=== PATIENT | female | born 1985 | race Caucasian/White ===

== ENCOUNTER → 2016-05-21 | Outpatient (CLI) | payer OTHER | END | disposition home or self-care (01) | LOC: MW.LAB 07:32 | PROVIDERS: ATTEND Obstetrics & Gynecology | DX: L29.9 Pruritus, unspecified (principal) | CPT/HCPCS: 84156 ==

== ENCOUNTER 2016-06-21 00:08 | Inpatient (IN) | payer OTHER ==
[2016-06-21] MEDS ORDERED: Sodium Chloride 0.9% 2.5 ML Syringe FLUSH PRN (00:36)
[2016-06-21] MEDS ORDERED: Terbutaline 1 MG/ML SDV SUBCUT PRN (00:36)
[2016-06-21] MEDS ORDERED: Lidocaine 1% 50 ML MDV INJECT PRN (00:36)
[2016-06-21] MEDS ORDERED: Butorphanol 1 MG/ML SDV IVPUSH PRN (00:36)
[2016-06-21] MEDS ORDERED: Carboprost Tromethamine 250 MCG/1 ML Amp IM PRN (00:36)
[2016-06-21] MEDS ORDERED: Misoprostol 200 MCG Tab PO PRN (00:36)
[2016-06-21] MEDS ORDERED: Misoprostol 25 MCG (1/4 of 100 MCG) Tab VAG PRN (00:36)
[2016-06-21] MEDS ORDERED: Nalbuphine 10 MG/1 ML Vial IVPUSH PRN (00:36)
[2016-06-21] MEDS ORDERED: Water For Irrigation,Sterile 1,000 ML Container IRR PRN (00:36)
[2016-06-21] MEDS ORDERED: Methylergonovine 0.2 MG/1 ML Amp IM PRN (00:36)
[2016-06-21] MEDS ORDERED: Sodium Chloride 0.9% 10 ML Syringe FLUSH PRN (00:36)
[2016-06-21] MEDS ORDERED: Oxytocin/Lactated Ringers 30 UNIT/500 ML BAG IV SCH ×2 (00:45)
[2016-06-21] MEDS ORDERED: Misoprostol 25 MCG (1/4 of 100 MCG) Tab VAG SCH (00:45)
[2016-06-21] MEDS: Lactated Ringers 1,000 ML IV SCH ×5 (00:53→17:40)
[2016-06-21] MEDS ORDERED: fentaNYL 100 MCG/2 ML SDV ONE (09:36)
[2016-06-21] MEDS ORDERED: Ropivacaine HCl/PF 100 ML ONE ×2 (09:37→17:38)
--- NOTE | 2016-06-21 10:20 | PCM.PREANE ---
Preanesthetic Assessment - Anesthesia/Transfusion/Family Hx Anesthesia History: Prior Anesthesia Without Reaction Family History of Anesthesia Reaction: No Transfusion History: No Prior Transfusion(s) Intubation History: Unknown - Review of Systems General: No Symptoms Pulmonary: No Symptoms Cardiovascular: No Symptoms Gastrointestinal: No symptoms, Other (states about 4 weeks ago they discovered she has cholestasis, but reports no symptoms) Neurological: No Symptoms - Physical Assessment NPO Status Date: 06/21/16 NPO Status Time: 10:17 (sips/chips) Blood Pressure: 126/79 Height: 5 ft 7 in Weight: 196 lb 9.6 oz ASA Class: 2 Mental Status: Alert & Oriented x3 Airway Class: Mallampati = 2 Dentition: Reports: Normal Dentition Thyro-Mental Finger Breadths: 3 Mouth Opening Finger Breadths: 3 ROM/Head Extension: Full Lungs: Clear to auscultation, Normal respiratory effort Cardiovascular: Regular Rate, Regular Rhythm - Lab Values: Laboratory Last Values WBC 12.90 K/uL (4.0-11.0) H 06/21/16 00:46 RBC 3.91 M/uL (4.30-5.90) L 06/21/16 00:46 Hgb 10.3 g/dL (12.0-16.0) L 06/21/16 00:46 Hct 31.8 % (36.0-46.0) L 06/21/16 00:46 MCV 81.3 fL (80.0-98.0) 06/21/16 00:46 MCH 26.3 pg (27.0-32.0) L 06/21/16 00:46 MCHC 32.4 g/dL (31.0-37.0) 06/21/16 00:46 RDW Std Deviation 38.6 fl (28.0-62.0) 06/21/16 00:46 RDW Coeff of Ross 13 % (11.0-15.0) 06/21/16 00:46 Plt Count 186 K/uL (150-400) 06/21/16 00:46 MPV 10.50 fL (7.40-12.00) 06/21/16 00:46 Nucleated RBC % 0.0 /100WBC 06/21/16 00:46 Nucleated RBCs # 0 K/uL 06/21/16 00:46 Blood Type A POSITIVE 06/21/16 00:46 Antibody Screen NEGATIVE 06/21/16 00:46 - Allergies Allergies/Adverse Reactions: Allergies Allergy/AdvReac Type Severity Reaction Status Date / Time Penicillins Allergy Other Verified 06/21/16 00:35 - Blood Blood Available: No Product(s) Available: None - Anesthesia Plan Pre-Op Medication Ordered: None - Acknowledgements Anesthesia Type Planned: Epidural Pt an Appropriate Candidate for the Planned Anesthesia: Yes Alternatives and Risks of Anesthesia Discussed w Pt/Guardian: Yes Pt/Guardian Understands and Agrees with Anesthesia Plan: Yes PreAnesthesia Questionnaire Respiratory History: Reports: Asthma (states has not had to use inhaler in a long time) Gastrointestinal History: Reports: Other (see below) (cholestasis - discovered 4 weeks ago - induction d/t this) HOME HEALTH OCCUPATIONAL THERAPIST History: Reports: Spontaneous , Other (see below) Other OB/BYN History: D&C - Past Surgical History HEENT Surgical History: Reports: Tonsillectomy Female Surgical History: Reports: D&C - SUBSTANCE USE Tobacco Use Within Last Twelve Months: No - CURRENT (IN HOUSE) MEDS Current Meds: Current Medications Butorphanol Tartrate (Stadol) 1 mg IVPUSH ASDIRECTED PRN PRN Reason: Pain Carboprost Tromethamine (Hemabate Ds) 250 mcg IM ASDIRECTED PRN PRN Reason: Post Hemorrhage Lactated Ringer's (Ringers, Lactated) 1,000 mls @ 150 mls/hr IV ASDIRECTED TAINA Last Admin: 06/21/16 10:12 Dose: 150 mls/hr Oxytocin/Lactated Ringer's (Pitocin In Lr 30 Units/500 Ml) 30 unit in 500 mls @ 2 mls/hr IV TITRATE TAINA; 2 MUNITS/MIN PRN Reason: Protocol Last Titration: 06/21/16 07:34 Dose: 14 munits/min, 14 mls/hr Lidocaine HCl (Xylocaine 1%) 50 ml INJECT .ONCE PRN PRN Reason: Laceration repair Methylergonovine Maleate (Methergine) 0.2 mg IM ASDIRECTED PRN PRN Reason: Post Hemorrhage Misoprostol (Cytotec) 200 mcg PO .ONCE PRN PRN Reason: Post Hemorrhage Misoprostol (Cytotec) 25 mcg VAG .ONCE TIANA Misoprostol (Cytotec) 25 mcg VAG Q4H PRN PRN Reason: Cervical Ripening Stop: 06/22/16 04:37 Last Admin: 06/21/16 01:07 Dose: 25 mcg Sodium Chloride (Saline Flush) 10 ml FLUSH ASDIRECTED PRN PRN Reason: Keep Vein Open Sodium Chloride (Saline Flush) 2.5 ml FLUSH ASDIRECTED PRN PRN Reason: Keep Vein Open Sterile Water (Sterile Water For Irrigation) 1,000 ml IRR ASDIRECTED PRN PRN Reason: delivery Terbutaline Sulfate (Brethine) 0.25 mg SUBCUT ASDIRECTED PRN PRN Reason: Tacysystole Discontinued Medications Fentanyl (Sublimaze) Confirm Administered Dose 100 mcg .ROUTE .STK-MED ONE Stop: 06/21/16 09:37 Oxytocin/Lactated Ringer's (Pitocin In Lr 30 Units/500 Ml) 30 unit in 500 mls @ 999 mls/hr IV ASDIRECTED TAINA PRN Reason: 999 MUNITS/MIN Stop: 06/21/16 01:16 Ropivacaine (Naropin 0.2%) Confirm Administered Dose 100 mls @ as directed .ROUTE .STK-MED ONE Stop: 06/21/16 09:38 Nalbuphine HCl (Nubain) 10 mg IVPUSH Q1H PRN PRN Reason: Pain (severe 7-10) Stop: 06/21/16 02:37
[2016-06-21] MEDS ORDERED: Acetaminophen 500 MG Tab PO ONE (16:46)
[2016-06-21] MEDS ORDERED: Ondansetron 4 MG/2 ML SDV IVPUSH ONE (17:05)
[2016-06-21] MEDS ORDERED: Measles, Mumps & Rubella Vaccine 0.5 ML SDV SUBCUT ONE (18:51)
[2016-06-21] MEDS ORDERED: Ibuprofen 400 MG Tab PO PRN (18:51)
[2016-06-21] MEDS ORDERED: Docusate Sodium 100 MG Cap PO PRN (18:51)
[2016-06-21] MEDS ORDERED: Benzocaine/Menthol 20%-0.5% Spray 78 GM Cannister TOP PRN (18:51)
[2016-06-21] MEDS ORDERED: Acetaminophen 500 MG Tab PO PRN ×2 (18:51)
[2016-06-21] MEDS ORDERED: Witch Hazel Medicated Pads 40/Jar TOP PRN (18:51)
[2016-06-21] MEDS ORDERED: Lanolin 100% Cream 7 GM Tube TOP PRN (18:51)
[2016-06-21] MEDS ORDERED: Bisacodyl 10 MG Supp RECTAL PRN (18:51)
[2016-06-21] MEDS: Ibuprofen 800 MG Tab PO PRN (21:24)
[2016-06-21] MEDS: oxyCODONE 5 MG Tab PO PRN (22:35)
--- NOTE | 2016-06-21 23:12 | OR ---
SURGEON: Erica Cox MD DATE OF PROCEDURE: 06/21/2016 PREOPERATIVE DIAGNOSES: 1. Term at 38 weeks and 2 days. 2. Cholestasis of . POSTOPERATIVE DIAGNOSES: 1. Term at 38 weeks and 2 days. 2. Cholestasis of . 3. Delivered. PROCEDURES: 1. Spontaneous vaginal delivery. 2. Repair of second-degree perineal laceration. ANESTHESIA: Epidural. ESTIMATED BLOOD LOSS: Less than 200 mL. COMPLICATIONS: None. DISPOSITION: Mother and baby stable to Labor and Delivery Room, [facility]. FINDINGS: Male , weight 3060 g, score 8 and 9 at 1 and 5 minute respectively. Grossly normal placenta with three-vessel cord. Midline second-degree perineal laceration. BRIEF HISTORY: The patient is a G3, P0 who was admitted at 38 weeks and 1 day for induction of labor secondary to cholestasis of . surveillance remained reassuring during the antepartum period. GBS negative. On admission, she received a dose of Cytotec 25 mcg vaginally for cervical ripening and thereafter oxytocin infusion was commenced. Artificial rupture of membranes was performed at about 0830am this morning, clear amniotic fluid. At that time, she was 3 cm dilated, 80% effaced, station -2. She did receive epidural for pain management, progressed to full dilatation and commenced active pushing. heart tracing remained Category 1. She pushed quite well bringing the baby's head down to a +4 station and was set up for delivery in modified dorsal lithotomy position. DESCRIPTION OF PROCEDURE: She had a spontaneous vaginal delivery of a live male in direct occipital anterior position, loose nuchal cord which was easily reduced, clear amniotic fluid at delivery. Anterior and posterior shoulders and the rest of the baby were delivered without difficulty. The baby was vigorous and cried spontaneously at . The baby was delivered onto the maternal abdomen. The cord was double clamped, after it had ceased pulsating and was cut. With delivery of the , oxytocin infusion was converted to titration for active management of third stage of labor. Cord blood and gas samples were obtained. The placenta was delivered via controlled cord traction, appeared to be complete and intact. Examination of the perineum revealed a midline second-degree laceration. The laceration was repaired with routine technique in 3 layers, subcuticular stitches were used to reapproximate the skin. The repair was hemostatic. Uterine massage was performed. The uterus was found to be well contracted below the umbilicus.The patient tolerated the procedure well. Sponge, instrument, and needle counts were correct at the end of the delivery. RUDY / JUS /[id number] MTDD
[2016-06-22] MEDS: oxyCODONE 5 MG Tab PO PRN ×2 (03:28→11:36)
[2016-06-22] MEDS: Ibuprofen 800 MG Tab PO PRN ×2 (03:29→11:37)
--- NOTE | 2016-06-22 07:48 | PCM48HPAN ---
Post Anesthesia Note - EVALUATION WITHIN 48HRS OF ANESTHETIC Vital Signs in Normal Range: Yes Patient Participated in Evaluation: Yes Respiratory Function Stable: Yes Airway Patent: Yes Cardiovascular Function Stable: Yes Hydration Status Stable: Yes Pain Control Satisfactory: Yes Nausea and Vomiting Control Satisfactory: Yes Mental Status Recovered: Yes
--- NOTE | 2016-06-22 07:56 | PCM.PNPP ---
- General Info Date of Service: 06/22/16 Functional Status: Reports: pain controlled, tolerating diet, ambulating, urinating - Review of Systems General: Denies: Fever, Weakness, Fatigue, Malaise, Chills Pulmonary: Denies: shortness of breath, pleuritic chest pain, cough Cardiovascular: Denies: Chest Pain, Palpitations Gastrointestinal: Denies: Abdominal pain Genitourinary: Denies: dysuria, incontinence Neurological: Denies: Headache Psychiatric: Denies: depression, mood lability, anxiety - General Info Date of Service: 06/22/16 - Patient Data Vital Signs - most recent: Last Vital Signs Temp 36.4 C 06/22/16 07:00 Pulse 63 06/22/16 07:00 Resp 22 H 06/22/16 07:00 BP 109/62 06/22/16 07:00 Pulse Ox 98 06/22/16 07:00 Weight - most recent: 196 lb 9.6 oz Lab Results - last 24 hrs: Laboratory Results - last 24 hr 06/22/16 Range/Units 04:40 Hgb 9.9 L (12.0-16.0) g/dL Hct 30.1 L (36.0-46.0) % Med Orders - Current: Current Medications Acetaminophen (Tylenol Extra Strength) 500 mg PO Q4H PRN PRN Reason: Pain Last Admin: 06/21/16 22:49 Dose: 500 mg Acetaminophen (Tylenol Extra Strength) 1,000 mg PO Q4H PRN PRN Reason: Pain Benzocaine/Menthol (Dermoplast Pain Relief 20%-0.5% [place]) 78 gm TOP ASDIRECTED PRN PRN Reason: Perineal Comfort Measure Last Admin: 06/21/16 21:22 Dose: 1 canister Bisacodyl (Dulcolax) 10 mg RECTAL .ONCE PRN PRN Reason: Constipation Docusate Sodium (Colace) 100 mg PO BID PRN PRN Reason: Constipation Last Admin: 06/21/16 21:25 Dose: 100 mg Emollient Ointment (Lansinoh Hpa) 0 gm TOP ASDIRECTED PRN PRN Reason: Sore Nipples Last Admin: 06/21/16 21:23 Dose: 1 tube Ibuprofen (Motrin) 400 mg PO Q4H PRN PRN Reason: Pain Ibuprofen (Motrin) 800 mg PO Q6H PRN PRN Reason: Pain Last Admin: 06/22/16 03:29 Dose: 800 mg Oxycodone HCl (Oxycodone) 5 mg PO Q2H PRN PRN Reason: Pain Last Admin: 06/22/16 03:28 Dose: 5 mg Witch Orin (Tucks) 1 pad TOP ASDIRECTED PRN PRN Reason: comfort care Last Admin: 06/21/16 21:23 Dose: 1 tub Discontinued Medications Acetaminophen (Tylenol Extra Strength) 1,000 mg PO ONETIME ONE Stop: 06/21/16 16:47 Last Admin: 06/21/16 17:00 Dose: 1,000 mg Butorphanol Tartrate (Stadol) 1 mg IVPUSH ASDIRECTED PRN PRN Reason: Pain Carboprost Tromethamine (Hemabate Ds) 250 mcg IM ASDIRECTED PRN PRN Reason: Post Hemorrhage Fentanyl (Sublimaze) Confirm Administered Dose 100 mcg .ROUTE .STK-MED ONE Stop: 06/21/16 09:37 Last Admin: 06/21/16 14:38 Dose: Not Given Lactated Ringer's (Ringers, Lactated) 1,000 mls @ 150 mls/hr IV ASDIRECTED TAINA Last Admin: 06/21/16 17:40 Dose: 150 mls/hr Oxytocin/Lactated Ringer's (Pitocin In Lr 30 Units/500 Ml) 30 unit in 500 mls @ 999 mls/hr IV ASDIRECTED TAINA PRN Reason: 999 MUNITS/MIN Stop: 06/21/16 01:16 Last Admin: 06/21/16 21:11 Dose: Not Given Oxytocin/Lactated Ringer's (Pitocin In Lr 30 Units/500 Ml) 30 unit in 500 mls @ 2 mls/hr IV TITRATE TAINA; 2 MUNITS/MIN PRN Reason: Protocol Last Titration: 06/21/16 16:04 Dose: 28 munits/min, 28 mls/hr Ropivacaine (Naropin 0.2%) Confirm Administered Dose 100 mls @ as directed .ROUTE .STK-MED ONE Stop: 06/21/16 09:38 Last Admin: 06/21/16 14:39 Dose: Not Given Ropivacaine (Naropin 0.2%) Confirm Administered Dose 100 mls @ as directed .ROUTE .STK-MED ONE Stop: 06/21/16 17:39 Last Admin: 06/21/16 21:11 Dose: Not Given Lidocaine HCl (Xylocaine 1%) 50 ml INJECT .ONCE PRN PRN Reason: Laceration repair Measles/Mumps/Rubella Vaccine Live (M-M-R Ii Vaccine) 0.5 ml SUBCUT .ONCE ONE Stop: 06/21/16 18:52 Methylergonovine Maleate (Methergine) 0.2 mg IM ASDIRECTED PRN PRN Reason: Post Hemorrhage Misoprostol (Cytotec) 200 mcg PO .ONCE PRN PRN Reason: Post Hemorrhage Misoprostol (Cytotec) 25 mcg VAG .ONCE TAINA Misoprostol (Cytotec) 25 mcg VAG Q4H PRN PRN Reason: Cervical Ripening Stop: 06/22/16 04:37 Last Admin: 06/21/16 01:07 Dose: 25 mcg Nalbuphine HCl (Nubain) 10 mg IVPUSH Q1H PRN PRN Reason: Pain (severe 7-10) Stop: 06/21/16 02:37 Ondansetron HCl (Zofran) 4 mg IVPUSH ONETIME ONE Stop: 06/21/16 17:06 Last Admin: 06/21/16 17:19 Dose: 4 mg Sodium Chloride (Saline Flush) 10 ml FLUSH ASDIRECTED PRN PRN Reason: Keep Vein Open Sodium Chloride (Saline Flush) 2.5 ml FLUSH ASDIRECTED PRN PRN Reason: Keep Vein Open Sterile Water (Sterile Water For Irrigation) 1,000 ml IRR ASDIRECTED PRN PRN Reason: delivery Terbutaline Sulfate (Brethine) 0.25 mg SUBCUT ASDIRECTED PRN PRN Reason: Tacysystole - Infant Interaction Disposition, : in Room with Family Feeding: Breastfed ; Nursed Well, Continues to Breastfeed Support Person: - Recovery Exam Fundal Tone: Firm Fundal Level: 1 Fingerbreadths Below Umbilicus Fundal Placement: Midline Lochia Amount: Scant Lochia Color: Rubra/Red Perineum Description: Other (see below) Other Perinuem Description: 2nd degree lac Episiotomy/Laceration: Approximated Urinary Elimination: Voided - Exam General: alert, oriented HEENT: Pupils equal Lungs: Clear to auscultation, Normal respiratory effort Cardiovascular: Regular Rate, Regular Rhythm Abdomen: bowel sounds present, soft, no tenderness, no distension Extremities: no edema Neurological: no new focal deficit Psy/Mental Status: alert, normal affect, normal mood - Problem List & Annotations (1) Vaginal delivery SNOMED Code(s): 393948065 Code(s): O80 - ENCOUNTER FOR FULL-TERM UNCOMPLICATED DELIVERY Status: Acute Current Visit: Yes - Problem List Review Problem List Initiated/Reviewed/Updated: Yes - My Orders Last 24 Hours: My Active Orders 06/21/16 18:51 Acetaminophen [Tylenol Extra Strength] 1,000 mg PO Q4H PRN Acetaminophen [Tylenol Extra Strength] 500 mg PO Q4H PRN Benzocaine/Menthol [Dermoplast Pain Relief 20%-0.5% [place]] 78 gm TOP ASDIRECTED PRN Bisacodyl [Dulcolax] 10 mg RECTAL .ONCE PRN Docusate Sodium [Colace] 100 mg PO BID PRN Ibuprofen [Motrin] 400 mg PO Q4H PRN Ibuprofen [Motrin] 800 mg PO Q6H PRN Lanolin [Lansinoh HPA] See Dose Instructions TOP ASDIRECTED PRN Witch Orin [Tucks] 1 pad TOP ASDIRECTED PRN oxyCODONE 5 mg PO Q2H PRN Breast Pump [WOMSER] Per Unit Routine Resuscitation Status Routine 06/21/16 18:52 Patient Status [ADT] Routine May Shower [RC] ASDIRECTED Up ad Evelyne [RC] ASDIRECTED Vital Signs [RC] PER UNIT ROUTINE Assess Lochia [WOMSER] Per Unit Routine Assess Uterine Involution [WOMSER] Per Unit Routine Peripheral IV Discontinue [OM.PC] Routine 06/21/16 18:53 Perineal Care [OM.PC] Per Unit Routine 06/22/16 Breakfast Regular Diet [DIET] - Assessment Assessment:: PPD#1 s/p , stable and afebrile Doing well. - Plan Plan:: Discharge instructions given Nothing in the vagina for 6 weeks Continue PNV OTC pain meds, Ibuprofen, Tylenol as needed Bleeding and infection precautions reviewed Follow up in 6 weeks
[2016-06-22 18:26] VITALS: BP 110/65
== END 2016-06-22 20:30 | disposition home or self-care (01) | DRG 775 ==
LOC: MW.OBCHECK 00:08 → MW.OB 00:14 → MW.OBCHECK 00:20 → MW.OB 00:20 → OBSVTOIN 18:23 → MW.OB 22:40
PROVIDERS: ADMIT Obstetrics & Gynecology; ATTEND Obstetrics & Gynecology
PROC: 10E0XZZ Delivery of Products of Conception, External Approach (ICD-10-PCS; principal; 2016-06-21)
PROC: 0KQM0ZZ Repair Perineum Muscle, Open Approach (ICD-10-PCS; 2016-06-21)
PROC: 3E0P7GC Introduction of Other Therapeutic Substance into Female Reproductive, Via Natural or Artificial Opening (ICD-10-PCS; 2016-06-21)
PROC: 10907ZC Drainage of Amniotic Fluid, Therapeutic from Products of Conception, Via Natural or Artificial Opening (ICD-10-PCS; 2016-06-21)
DX: O26.62 Liver and biliary tract disorders in childbirth (principal); K83.1 Obstruction of bile duct; O70.1 Second degree perineal laceration during delivery; Z3A.38 38 weeks gestation of pregnancy; Z37.0 Single live birth
CPT/HCPCS: 01967; 36415; 59025; 85014; 85018; 85027; 86850; 86900; 86901; 90707; A9270-GY; J2405; J7120

== ENCOUNTER 2019-06-10 05:08 | Inpatient (IN) | payer OTHER ==
[2019-06-10] MEDS ORDERED: Water For Irrigation,Sterile 1,000 ML Container IRR PRN (05:21)
[2019-06-10] MEDS ORDERED: Butorphanol 1 MG/ML SDV IVPUSH PRN (05:21)
[2019-06-10] MEDS ORDERED: Carboprost Tromethamine 250 MCG/1 ML Amp IM PRN (05:21)
[2019-06-10] MEDS ORDERED: Sodium Chloride 0.9% 10 ML SDV IV PRN (05:21)
[2019-06-10] MEDS ORDERED: Misoprostol 25 MCG (1/4 of 100 MCG) Tab VAG PRN ×2 (05:21)
[2019-06-10] MEDS ORDERED: Misoprostol 200 MCG Tab PO PRN (05:21)
[2019-06-10] MEDS ORDERED: Methylergonovine 0.2 MG/1 ML Amp IM PRN (05:21)
[2019-06-10] MEDS ORDERED: Sodium Chloride 0.9% 2.5 ML Syringe FLUSH PRN (05:21)
[2019-06-10] MEDS ORDERED: Ondansetron 4 MG/2 ML SDV IVPUSH PRN (05:21)
[2019-06-10] MEDS ORDERED: Lidocaine 1% 50 ML MDV INJECT PRN (05:21)
[2019-06-10] MEDS ORDERED: Sodium Chloride 0.9% 10 ML Syringe FLUSH PRN (05:21)
[2019-06-10] MEDS ORDERED: Tranexamic Acid 1,000 MG in Sodium Chloride 0.9% 100 ML IV PRN (05:21)
[2019-06-10] MEDS ORDERED: Terbutaline 1 MG/ML SDV SUBCUT PRN (05:21)
[2019-06-10] MEDS ORDERED: Oxytocin/0.9 % Sodium Chloride 30 UNIT/500 ML BAG IV SCH ×5 (05:30→08:30)
[2019-06-10] MEDS: Lactated Ringers 1,000 ML IV SCH ×3 (07:40→12:12)
[2019-06-10] MEDS ORDERED: Oxytocin/0.9 % Sodium Chloride 0 UNIT/0 ML BAG ONE (07:49)
[2019-06-10] MEDS ORDERED: Ropivacaine HCl/PF 100 ML ONE (11:03)
[2019-06-10] MEDS ORDERED: fentaNYL 100 MCG/2 ML SDV ONE (11:03)
[2019-06-10] MEDS ORDERED: Lidocaine 1% 0 ML ONE (11:19)
[2019-06-10] MEDS ORDERED: Lidocaine 2% 5 ML SDV ONE (11:21)
[2019-06-10] MEDS ORDERED: Lidocaine 1% 50 ML MDV ONE (11:22)
--- NOTE | 2019-06-10 11:42 | PCM.PREANE ---
Preanesthetic Assessment - Anesthesia/Transfusion/Family Hx Anesthesia History: Prior Anesthesia Without Reaction Family History of Anesthesia Reaction: No Transfusion History: No Prior Transfusion(s) Intubation History: Unknown - Physical Assessment NPO Status Date: 06/10/19 NPO Status Time: 05:00 Height: 1.7 m Weight: 88.451 kg ASA Class: 1 - Lab Values: Laboratory Last Values WBC 10.91 K/uL (4.0-11.0) 06/10/19 05:50 RBC 4.32 M/uL (4.30-5.90) 06/10/19 05:50 Hgb 11.8 g/dL (12.0-16.0) L 06/10/19 05:50 Hct 36.5 % (36.0-46.0) 06/10/19 05:50 MCV 84.5 fL (80.0-98.0) 06/10/19 05:50 MCH 27.3 pg (27.0-32.0) 06/10/19 05:50 MCHC 32.3 g/dL (31.0-37.0) 06/10/19 05:50 RDW Std Deviation 45.5 fl (28.0-62.0) 06/10/19 05:50 RDW Coeff of Ross 15 % (11.0-15.0) 06/10/19 05:50 Plt Count 176 K/uL (150-400) 06/10/19 05:50 MPV 10.80 fL (7.40-12.00) 06/10/19 05:50 Nucleated RBC % 0.0 /100WBC 06/10/19 05:50 Nucleated RBCs # 0 K/uL 06/10/19 05:50 Blood Type A POSITIVE 06/10/19 05:50 Antibody Screen NEGATIVE 06/10/19 05:50 - Allergies Allergies/Adverse Reactions: Allergies Allergy/AdvReac Type Severity Reaction Status Date / Time Penicillins Allergy Severe Anaphylactic Verified 06/10/19 05:19 Shock - Acknowledgements Anesthesia Type Planned: Epidural Pt an Appropriate Candidate for the Planned Anesthesia: Yes Alternatives and Risks of Anesthesia Discussed w Pt/Guardian: Yes Pt/Guardian Understands and Agrees with Anesthesia Plan: Yes PreAnesthesia Questionnaire Respiratory History: Reports: Asthma Gastrointestinal History: Reports: Other (See Below) [employer]LECT[employer]ER History: Reports: , Spontaneous , Other (See Below) Other OB/BYN History: D&C Endocrine/Metabolic History: Reports: Other (See Below) Other Endocrine/Metabolic History: Cholestasis - Past Surgical History HEENT Surgical History: Reports: Tonsillectomy Female Surgical History: Reports: D&C - SUBSTANCE USE Smoking Status *Q: Never Smoker Second Hand Smoke Exposure: No Recreational Drug Use History: No - CURRENT (IN HOUSE) MEDS Current Meds: Current Medications Butorphanol Tartrate (Stadol) 1 mg IVPUSH Q1H PRN PRN Reason: Pain Carboprost Tromethamine (Hemabate Ds) 250 mcg IM ASDIRECTED PRN PRN Reason: Post Hemorrhage Lactated Ringer's (Ringers, Lactated) 1,000 mls @ 150 mls/hr IV ASDIRECTED TAINA Last Admin: 06/10/19 11:06 Dose: 999 mls/hr Tranexamic Acid 1,000 mg/ (Sodium Chloride) 110 mls @ 660 mls/hr IV ONETIME PRN PRN Reason: Bleeding Oxytocin/Sodium Chloride (Oxytocin 30 Unit/500 Ml-Ns) 30 unit in 500 mls @ 2 mls/hr IV TITRATE TAINA; Protocol Last Infusion: 06/10/19 11:01 Dose: 14 munits/min, 14 mls/hr Lidocaine HCl (Xylocaine 1%) 50 ml INJECT ONETIME PRN PRN Reason: Laceration repair Methylergonovine Maleate (Methergine) 0.2 mg IM ASDIRECTED PRN PRN Reason: Post Hemorrhage Misoprostol (Cytotec) 200 mcg PO ONETIME PRN PRN Reason: Post Hemorrhage Misoprostol (Cytotec) 25 mcg VAG ONETIME PRN PRN Reason: Cervical Ripening Misoprostol (Cytotec) 25 mcg VAG Q4H PRN PRN Reason: Cervical Ripening Ondansetron HCl (Zofran) 4 mg IVPUSH Q6H PRN PRN Reason: Nausea/Vomiting Sodium Chloride (Saline Flush) 10 ml FLUSH ASDIRECTED PRN PRN Reason: Keep Vein Open Sodium Chloride (Saline Flush) 2.5 ml FLUSH ASDIRECTED PRN PRN Reason: Keep Vein Open Sodium Chloride (Normal Saline) 10 ml IV ASDIRECTED PRN PRN Reason: IV Use Sterile Water (Sterile Water For Irrigation) 1,000 ml IRR ASDIRECTED PRN PRN Reason: delivery Terbutaline Sulfate (Brethine) 0.25 mg SUBCUT ASDIRECTED PRN PRN Reason: Tacysystole Discontinued Medications Fentanyl (Sublimaze) Confirm Administered Dose 100 mcg .ROUTE .STK-MED ONE Stop: 06/10/19 11:04 Oxytocin/Sodium Chloride (Oxytocin 30 Unit/500 Ml-Ns) 30 unit in 500 mls @ 500 mls/hr IV TITRATE TAINA Oxytocin/Sodium Chloride (Oxytocin 30 Unit/500 Ml-Ns) 30 unit in 500 mls @ 2 mls/hr IV TITRATE TAINA; Protocol Oxytocin/Sodium Chloride (Oxytocin 30 Unit/500 Ml-Ns) Confirm Administered Dose 0 unit in 0 mls @ as directed .ROUTE .STK-MED ONE Stop: 06/10/19 07:50 Oxytocin/Sodium Chloride (Oxytocin 30 Unit/500 Ml-Ns) 30 unit in 500 mls @ 2 mls/hr IV TITRATE TAINA; Protocol Oxytocin/Sodium Chloride (Oxytocin 30 Unit/500 Ml-Ns) 30 unit in 500 mls @ 500 mls/hr IV TITRATE TAINA Ropivacaine (Naropin 0.2%) Confirm Administered Dose 100 mls @ as directed .ROUTE .STK-MED ONE Stop: 06/10/19 11:04 Lidocaine HCl (Xylocaine-Mpf 1%) Confirm Administered Dose 2 mls @ as directed .ROUTE .STK-MED ONE Stop: 06/10/19 11:20 Lidocaine (Xylocaine-Mpf 2%) Confirm Administered Dose 5 ml .ROUTE .STK-MED ONE Stop: 06/10/19 11:22 Lidocaine HCl (Xylocaine 1%) Confirm Administered Dose 50 ml .ROUTE .STK-MED ONE Stop: 06/10/19 11:23
--- NOTE | 2019-06-10 11:45 | PCM.PRNOTE ---
- Free Text/Narrative Note: Anes NOte Patietn requests epidural for L&D. Sitting position. Level L3-L4. Midline approach. Chloraprep scrub to lumbar area. Sterile fenestrated drape applied. Epidural space achieved after several attempts using PAULINA technique. PAULINA at 4 cm. Cath threaded 5 cm with ease. Cath secured at skin 11 cm using sterile clear adhesive dressing. 1130 Test 3 cc 1.5% lido with epi negative. 1133 load 10 cc 0.2% ropivicaine with 1 mcg cc fentanyl in slow divided doses. 1138 pump started with 90 cc same solution. Rate is 8 cc hr with 6 cc q 20 min prn bolus. Time with patient [id number] Fuad Chapa CRNA
[2019-06-10] MEDS ORDERED: Benzocaine/Menthol 20%-0.5% Spray 78 GM Cannister TOP PRN (15:21)
[2019-06-10] MEDS ORDERED: Docusate Sodium 100 MG Cap PO PRN (15:21)
[2019-06-10] MEDS ORDERED: Lanolin 100% Cream 7 GM Tube TOP PRN (15:21)
[2019-06-10] MEDS ORDERED: Bisacodyl 10 MG Supp RECTAL PRN (15:21)
[2019-06-10] MEDS ORDERED: Acetaminophen 500 MG Tab PO PRN (15:21)
[2019-06-10] MEDS ORDERED: Ibuprofen 800 MG Tab PO PRN (15:21)
[2019-06-10] MEDS ORDERED: oxyCODONE 5 MG Tab PO PRN (15:21)
[2019-06-10] MEDS ORDERED: Witch Hazel Medicated Pads 40/Jar TOP PRN (15:21)
--- NOTE | 2019-06-10 15:25 | PCM.DEL ---
L & D Note - General Info Date of Service: 06/10/19 Mother's Due Date: 06/15/19 - Delivery Note Labor: Induced by Oxytocin Delivery Outcome: Livebirth Infant Delivery Method: Spontaneous Vaginal Delivery-Single Presentation: Vertex Nuchal Cord: Present, Reduced (after delivery of body) Anesthesia Type: Epidural Amniotic Fluid Description: Clear Episiotomy Type: None Laceration: 2nd Degree Suture type: Vicryl Suture size: 2-0 Placenta: Intact, Spontaneous Cord: 3 Vessels Estimated Blood Loss: 300 : Stimulated, Warmed, [place] Used Score 1 min: 8 Score 5 min: 9 - General Info Date of Service: 06/10/19 - Patient Data Weight - Most Recent: 88.451 kg Lab Results Last 24 Hours: Laboratory Results - last 24 hr 06/10/19 06/10/19 Range/Units 05:50 05:50 WBC 10.91 (4.0-11.0) K/uL RBC 4.32 (4.30-5.90) M/uL Hgb 11.8 L (12.0-16.0) g/dL Hct 36.5 (36.0-46.0) % MCV 84.5 (80.0-98.0) fL MCH 27.3 (27.0-32.0) pg MCHC 32.3 (31.0-37.0) g/dL RDW Std Deviation 45.5 (28.0-62.0) fl RDW Coeff of Ross 15 (11.0-15.0) % Plt Count 176 (150-400) K/uL MPV 10.80 (7.40-12.00) fL Nucleated RBC % 0.0 /100WBC Nucleated RBCs # 0 K/uL Blood Type A POSITIVE Antibody Screen NEGATIVE Med Orders - Current: Current Medications Acetaminophen (Tylenol Extra Strength) 1,000 mg PO Q6H PRN PRN Reason: Pain Benzocaine/Menthol (Dermoplast Pain Relief 20%-0.5% [place]) 78 gm TOP ASDIRECTED PRN PRN Reason: Perineal Comfort Measure Bisacodyl (Dulcolax) 10 mg RECTAL ONETIME PRN PRN Reason: Constipation Butorphanol Tartrate (Stadol) 1 mg IVPUSH Q1H PRN PRN Reason: Pain Carboprost Tromethamine (Hemabate Ds) 250 mcg IM ASDIRECTED PRN PRN Reason: Post Hemorrhage Docusate Sodium (Colace) 100 mg PO BID PRN PRN Reason: Constipation Emollient Ointment (Lansinoh Hpa) 0 gm TOP ASDIRECTED PRN PRN Reason: Sore Nipples Lactated Ringer's (Ringers, Lactated) 1,000 mls @ 150 mls/hr IV ASDIRECTED [facility] Last Admin: 06/10/19 12:12 Dose: 150 mls/hr Tranexamic Acid 1,000 mg/ (Sodium Chloride) 110 mls @ 660 mls/hr IV ONETIME PRN PRN Reason: Bleeding Oxytocin/Sodium Chloride (Oxytocin 30 Unit/500 Ml-Ns) 30 unit in 500 mls @ 2 mls/hr IV TITRATE [facility]; Protocol Last Infusion: 06/10/19 15:10 Dose: 999 munits/min, 999 mls/hr Ibuprofen (Motrin) 800 mg PO Q8H PRN PRN Reason: Pain Lidocaine HCl (Xylocaine 1%) 50 ml INJECT ONETIME PRN PRN Reason: Laceration repair Methylergonovine Maleate (Methergine) 0.2 mg IM ASDIRECTED PRN PRN Reason: Post Hemorrhage Misoprostol (Cytotec) 200 mcg PO ONETIME PRN PRN Reason: Post Hemorrhage Misoprostol (Cytotec) 25 mcg VAG ONETIME PRN PRN Reason: Cervical Ripening Misoprostol (Cytotec) 25 mcg VAG Q4H PRN PRN Reason: Cervical Ripening Ondansetron HCl (Zofran) 4 mg IVPUSH Q6H PRN PRN Reason: Nausea/Vomiting Oxycodone HCl (Oxycodone) 5 mg PO Q4H PRN PRN Reason: Pain Sodium Chloride (Saline Flush) 10 ml FLUSH ASDIRECTED PRN PRN Reason: Keep Vein Open Sodium Chloride (Saline Flush) 2.5 ml FLUSH ASDIRECTED PRN PRN Reason: Keep Vein Open Sodium Chloride (Normal Saline) 10 ml IV ASDIRECTED PRN PRN Reason: IV Use Sterile Water (Sterile Water For Irrigation) 1,000 ml IRR ASDIRECTED PRN PRN Reason: delivery Terbutaline Sulfate (Brethine) 0.25 mg SUBCUT ASDIRECTED PRN PRN Reason: Tacysystole Witch Orin (Tucks) 1 pad TOP ASDIRECTED PRN PRN Reason: comfort care Discontinued Medications Fentanyl (Sublimaze) Confirm Administered Dose 100 mcg .ROUTE .STK-MED ONE Stop: 06/10/19 11:04 Oxytocin/Sodium Chloride (Oxytocin 30 Unit/500 Ml-Ns) 30 unit in 500 mls @ 500 mls/hr IV TITRATE [facility] Oxytocin/Sodium Chloride (Oxytocin 30 Unit/500 Ml-Ns) 30 unit in 500 mls @ 2 mls/hr IV TITRATE [facility]; Protocol Oxytocin/Sodium Chloride (Oxytocin 30 Unit/500 Ml-Ns) Confirm Administered Dose 0 unit in 0 mls @ as directed .ROUTE .STK-MED ONE Stop: 06/10/19 07:50 Oxytocin/Sodium Chloride (Oxytocin 30 Unit/500 Ml-Ns) 30 unit in 500 mls @ 2 mls/hr IV TITRATE [facility]; Protocol Oxytocin/Sodium Chloride (Oxytocin 30 Unit/500 Ml-Ns) 30 unit in 500 mls @ 500 mls/hr IV TITRATE [facility] Ropivacaine (Naropin 0.2%) Confirm Administered Dose 100 mls @ as directed .ROUTE .STK-MED ONE Stop: 06/10/19 11:04 Lidocaine HCl (Xylocaine-Mpf 1%) Confirm Administered Dose 2 mls @ as directed .ROUTE .STK-MED ONE Stop: 06/10/19 11:20 Lidocaine (Xylocaine-Mpf 2%) Confirm Administered Dose 5 ml .ROUTE .STK-MED ONE Stop: 06/10/19 11:22 Lidocaine HCl (Xylocaine 1%) Confirm Administered Dose 50 ml .ROUTE .STK-MED ONE Stop: 06/10/19 11:23 - Problem List & Annotations (1) Vaginal delivery SNOMED Code(s): 580568006 Code(s): O80 - ENCOUNTER FOR FULL-TERM UNCOMPLICATED DELIVERY Status: Acute Current Visit: No - Problem List Review Problem List Initiated/Reviewed/Updated: Yes - My Orders Last 24 Hours: My Active Orders 06/10/19 05:21 Patient Status [ADT] Routine Communication Order [RC] ASDIRECTED Communication Order [RC] ASDIRECTED Communication Order [RC] ASDIRECTED May Shower [RC] ASDIRECTED Notify Provider [RC] PRN Notify Provider [RC] PRN Notify Provider [RC] PRN Notify Provider [RC] STAT Oxygen Therapy [RC] ASDIRECTED Up ad Evelyne [RC] ASDIRECTED Vital Signs [RC] PER UNIT ROUTINE Butorphanol [Stadol] 1 mg IVPUSH Q1H PRN Carboprost Tromethamine [Hemabate DS] 250 mcg IM ASDIRECTED PRN Lidocaine 1% [Xylocaine 1%] 50 ml INJECT ONETIME PRN Methylergonovine [Methergine] 0.2 mg IM ASDIRECTED PRN Ondansetron [Zofran] 4 mg IVPUSH Q6H PRN Sodium Chloride 0.9% [Normal Saline] 10 ml IV ASDIRECTED PRN Sodium Chloride 0.9% [Saline Flush] 10 ml FLUSH ASDIRECTED PRN Sodium Chloride 0.9% [Saline Flush] 2.5 ml FLUSH ASDIRECTED PRN Terbutaline [Brethine] 0.25 mg SUBCUT ASDIRECTED PRN Tranexamic Acid [Cyklokapron] 1,000 mg Sodium Chloride 0.9% [Normal Saline] 100 ml IV ONETIME Water For Irrigation,Sterile [Sterile Water for Irrigation] 1,000 ml IRR ASDIRECTED PRN miSOPROStoL [Cytotec] 200 mcg PO ONETIME PRN miSOPROStoL [Cytotec] 25 mcg VAG ONETIME PRN miSOPROStoL [Cytotec] 25 mcg VAG Q4H PRN Scalp Electrode [WOMSER] Per Unit Routine Peripheral IV Insertion Adult [OM.PC] Routine Resuscitation Status Routine 06/10/19 05:30 Lactated Ringers [Ringers, Lactated] 1,000 ml IV ASDIRECTED Medication Administration Instruction [OM.PC] Q3H 06/10/19 05:50 RPR (SYPHILIS SERO) W/ RFLX [REF] Routine 06/10/19 08:30 Oxytocin/0.9 % Sodium Chloride [Oxytocin 30 Unit/500 ML-NS] 30 unit in 500 ml IV TITRATE 06/10/19 15:21 Patient Status [ADT] Routine May Shower [RC] ASDIRECTED Notify Provider Vital Signs [RC] ASDIRECTED Up ad Evelyne [RC] ASDIRECTED Vital Signs [RC] PER UNIT ROUTINE Acetaminophen [Tylenol Extra Strength] 1,000 mg PO Q6H PRN Benzocaine/Menthol [Dermoplast Pain Relief 20%-0.5% [place]] 78 gm TOP ASDIRECTED PRN Docusate Sodium [Colace] 100 mg PO BID PRN Ibuprofen [Motrin] 800 mg PO Q8H PRN Lanolin [Lansinoh HPA] See Dose Instructions TOP ASDIRECTED PRN bisacodyL [Dulcolax] 10 mg RECTAL ONETIME PRN oxyCODONE 5 mg PO Q4H PRN witch Orin [Tucks] 1 pad TOP ASDIRECTED PRN Assess Lochia [WOMSER] Per Unit Routine Assess Uterine Involution [WOMSER] Per Unit Routine Breast Pump [WOMSER] Per Unit Routine Peripheral IV Discontinue [OM.PC] Routine 06/10/19 15:22 Cooling Warming Measures [RC] ASDIRECTED Ice Therapy [OM.PC] Per Unit Routine Perineal Care [OM.PC] Per Unit Routine Sitz Bath [OM.PC] Per Unit Routine 06/10/19 Breakfast Clear Liquid Diet [DIET] 06/10/19 Dinner Regular Diet [DIET] 06/11/19 05:11 HEMOGLOBIN/HEMATOCRIT,HH [HEME] Timed - Assessment Assessment:: 33yo s/p at 39w2d - Plan Plan:: Admit to unit for routine care.
--- NOTE | 2019-06-10 15:56 | OR ---
SURGEON: Katharine Webb MD DATE OF PROCEDURE: 06/10/2019 PREOPERATIVE DIAGNOSES: 1. A 33-year-old, G5, P1-0-3-1 at 39 weeks and 2 days gestation. 2. Elective induction of labor. 3. GBS negative. POSTOPERATIVE DIAGNOSES: 1. A 33-year-old, G5, P2-0-3-2, status post spontaneous vaginal delivery at 39 weeks and 2 days gestation. 2. GBS negative. PROCEDURES: 1. Spontaneous vaginal delivery. 2. Repair of second-degree perineal laceration. PRIMARY SURGEON: Katharine Webb MD ANESTHESIA: Epidural. ESTIMATED BLOOD LOSS: 300 mL. FINDINGS: Live male infant in cephalic presentation. score of 8 and 9 at one and five minutes respectively. Weight pending. Nuchal cord x1 reduced after delivery of the body. Placenta intact with 3-vessel cord. Second-degree perineal laceration. INDICATIONS: This is a 33-year-old, G5, P1-0-3-1 who presented at 39 weeks and 2 days gestation for planned induction of labor. Upon presentation, her cervix was found to be 3 cm dilated. She was started on Pitocin. At 4 cm dilated, the patient received an epidural for pain control. At approximately 5 cm dilated, the patient underwent artificial rupture of membranes with clear fluid noted. She progressed to complete cervical dilation and I was called to the room. DESCRIPTION OF PROCEDURE: When I presented to the room, infant's head was at +3 station. She pushed over 1 contraction, delivered a live male . Head was delivered followed quickly by the shoulders and remainder of the body. Nuchal cord x1 was reduced after delivery of the body. The was placed on maternal abdomen. After approximately 60 seconds, the cord was clamped and cut. The placenta then delivered via the Martinez-Lieberman maneuver intact and with 3-vessel cord. The perineum was inspected and a second-degree perineal laceration was noted. This was repaired to anatomy and hemostasis with 2-0 Vicryl. The fundus was firm 2 cm below the umbilicus. Bleeding was scant. The patient and infant tolerated the delivery well. [id number] / MODL /[id number]
--- NOTE | 2019-06-11 07:00 | PCM48HPAN ---
Post Anesthesia Note - EVALUATION WITHIN 48HRS OF ANESTHETIC Vital Signs in Normal Range: Yes Patient Participated in Evaluation: Yes Respiratory Function Stable: Yes Airway Patent: Yes Cardiovascular Function Stable: Yes Hydration Status Stable: Yes Pain Control Satisfactory: Yes Nausea and Vomiting Control Satisfactory: Yes Mental Status Recovered: Yes Vital Signs: Last Vital Signs Temp 36.7 C 06/11/19 04:37 Pulse 68 06/11/19 04:37 Resp 16 06/11/19 04:37 BP 106/64 06/11/19 04:37 Pulse Ox 97 06/11/19 04:37
--- NOTE | 2019-06-11 08:20 | PCM.PNPP ---
- General Info Date of Service: 06/11/19 Subjective Update: Patient doing well. went well overnight. No complaints. Minimal lochia, mild cramping. Functional Status: Reports: Pain Controlled, Tolerating Diet, Ambulating, Urinating - Review of Systems General: Reports: No Symptoms HEENT: Reports: No Symptoms Pulmonary: Reports: No Symptoms Cardiovascular: Reports: No Symptoms Gastrointestinal: Reports: No Symptoms Genitourinary: Reports: No Symptoms Musculoskeletal: Reports: No Symptoms Skin: Reports: No Symptoms Neurological: Reports: No Symptoms Psychiatric: Reports: No Symptoms - Patient Data Vital Signs - Most Recent: Last Vital Signs Temp 36.6 C 06/11/19 08:00 Pulse 65 06/11/19 08:00 Resp 16 06/11/19 08:00 BP 111/64 06/11/19 08:00 Pulse Ox 98 06/11/19 08:00 Weight - Most Recent: 88.451 kg Lab Results - Last 24 Hours: Laboratory Results - last 24 hr 06/11/19 Range/Units 05:58 Hgb 10.6 L (12.0-16.0) g/dL Hct 33.5 L (36.0-46.0) % Med Orders - Current: Current Medications Acetaminophen (Tylenol Extra Strength) 1,000 mg PO Q6H PRN PRN Reason: Pain Benzocaine/Menthol (Dermoplast Pain Relief 20%-0.5% [place]) 78 gm TOP ASDIRECTED PRN PRN Reason: Perineal Comfort Measure Last Admin: 06/10/19 21:20 Dose: 1 spray Bisacodyl (Dulcolax) 10 mg RECTAL ONETIME PRN PRN Reason: Constipation Butorphanol Tartrate (Stadol) 1 mg IVPUSH Q1H PRN PRN Reason: Pain Carboprost Tromethamine (Hemabate Ds) 250 mcg IM ASDIRECTED PRN PRN Reason: Post Hemorrhage Docusate Sodium (Colace) 100 mg PO BID PRN PRN Reason: Constipation Emollient Ointment (Lansinoh Hpa) 0 gm TOP ASDIRECTED PRN PRN Reason: Sore Nipples Lactated Ringer's (Ringers, Lactated) 1,000 mls @ 150 mls/hr IV ASDIRECTED [facility] Last Admin: 06/10/19 12:12 Dose: 150 mls/hr Tranexamic Acid 1,000 mg/ (Sodium Chloride) 110 mls @ 660 mls/hr IV ONETIME PRN PRN Reason: Bleeding Oxytocin/Sodium Chloride (Oxytocin 30 Unit/500 Ml-Ns) 30 unit in 500 mls @ 2 mls/hr IV TITRATE [facility]; Protocol Last Infusion: 06/10/19 15:10 Dose: 999 munits/min, 999 mls/hr Ibuprofen (Motrin) 800 mg PO Q8H PRN PRN Reason: Pain Last Admin: 06/10/19 21:17 Dose: 800 mg Lidocaine HCl (Xylocaine 1%) 50 ml INJECT ONETIME PRN PRN Reason: Laceration repair Methylergonovine Maleate (Methergine) 0.2 mg IM ASDIRECTED PRN PRN Reason: Post Hemorrhage Misoprostol (Cytotec) 200 mcg PO ONETIME PRN PRN Reason: Post Hemorrhage Misoprostol (Cytotec) 25 mcg VAG ONETIME PRN PRN Reason: Cervical Ripening Misoprostol (Cytotec) 25 mcg VAG Q4H PRN PRN Reason: Cervical Ripening Ondansetron HCl (Zofran) 4 mg IVPUSH Q6H PRN PRN Reason: Nausea/Vomiting Oxycodone HCl (Oxycodone) 5 mg PO Q4H PRN PRN Reason: Pain Sodium Chloride (Saline Flush) 10 ml FLUSH ASDIRECTED PRN PRN Reason: Keep Vein Open Sodium Chloride (Saline Flush) 2.5 ml FLUSH ASDIRECTED PRN PRN Reason: Keep Vein Open Sodium Chloride (Normal Saline) 10 ml IV ASDIRECTED PRN PRN Reason: IV Use Sterile Water (Sterile Water For Irrigation) 1,000 ml IRR ASDIRECTED PRN PRN Reason: delivery Terbutaline Sulfate (Brethine) 0.25 mg SUBCUT ASDIRECTED PRN PRN Reason: Tacysystole Witch [place] (Tucks) 1 pad TOP ASDIRECTED PRN PRN Reason: comfort care Last Admin: 06/10/19 21:19 Dose: 1 pad Discontinued Medications Fentanyl (Sublimaze) Confirm Administered Dose 100 mcg .ROUTE .STK-MED ONE Stop: 06/10/19 11:04 Oxytocin/Sodium Chloride (Oxytocin 30 Unit/500 Ml-Ns) 30 unit in 500 mls @ 500 mls/hr IV TITRATE [place] Oxytocin/Sodium Chloride (Oxytocin 30 Unit/500 Ml-Ns) 30 unit in 500 mls @ 2 mls/hr IV TITRATE [facility]; Protocol Oxytocin/Sodium Chloride (Oxytocin 30 Unit/500 Ml-Ns) Confirm Administered Dose 0 unit in 0 mls @ as directed .ROUTE .STK-MED ONE Stop: 06/10/19 07:50 Oxytocin/Sodium Chloride (Oxytocin 30 Unit/500 Ml-Ns) 30 unit in 500 mls @ 2 mls/hr IV TITRATE [place]; Protocol Oxytocin/Sodium Chloride (Oxytocin 30 Unit/500 Ml-Ns) 30 unit in 500 mls @ 500 mls/hr IV TITRATE [place] Ropivacaine (Naropin 0.2%) Confirm Administered Dose 100 mls @ as directed .ROUTE .STK-MED ONE Stop: 06/10/19 11:04 Lidocaine HCl (Xylocaine-Mpf 1%) Confirm Administered Dose 2 mls @ as directed .ROUTE .STK-MED ONE Stop: 06/10/19 11:20 Lidocaine (Xylocaine-Mpf 2%) Confirm Administered Dose 5 ml .ROUTE .STK-MED ONE Stop: 06/10/19 11:22 Lidocaine HCl (Xylocaine 1%) Confirm Administered Dose 50 ml .ROUTE .STK-MED ONE Stop: 06/10/19 11:23 - Interaction Infant Disposition, : in Room with Family Interaction: Holding Infant Feeding: Breastfed ; Nursed Well Support Person: - Recovery Exam Fundal Level: 2 Fingerbreadths Below Umbilicus Fundal Placement: Midline Lochia Amount: Small Lochia Color: Rubra/Red Bladder Status: Voiding Urinary Elimination: Voided - Exam General: Alert, Oriented Neck: Supple Lungs: Clear to Auscultation, Normal Respiratory Effort Cardiovascular: Regular Rate, Regular Rhythm GI/Abdominal Exam: Soft, Non-Tender Extremities: Non-Tender, No Pedal Edema Skin: Warm, Dry, Intact Neurological: No New Focal Deficit Psy/Mental Status: Alert, Normal Affect, Normal Mood - Problem List & Annotations (1) Vaginal delivery SNOMED Code(s): 438208462 Code(s): O80 - ENCOUNTER FOR FULL-TERM UNCOMPLICATED DELIVERY Status: Acute Current Visit: No - Problem List Review Problem List Initiated/Reviewed/Updated: Yes - My Orders Last 24 Hours: My Active Orders 06/10/19 08:30 Oxytocin/0.9 % Sodium Chloride [Oxytocin 30 Unit/500 ML-NS] 30 unit in 500 ml IV TITRATE 06/10/19 15:21 Patient Status [ADT] Routine May Shower [RC] ASDIRECTED Notify Provider Vital Signs [RC] ASDIRECTED Up ad Evelyne [RC] ASDIRECTED Vital Signs [RC] PER UNIT ROUTINE Acetaminophen [Tylenol Extra Strength] 1,000 mg PO Q6H PRN Benzocaine/Menthol [Dermoplast Pain Relief 20%-0.5% [place]] 78 gm TOP ASDIRECTED PRN Docusate Sodium [Colace] 100 mg PO BID PRN Ibuprofen [Motrin] 800 mg PO Q8H PRN Lanolin [Lansinoh HPA] See Dose Instructions TOP ASDIRECTED PRN bisacodyL [Dulcolax] 10 mg RECTAL ONETIME PRN oxyCODONE 5 mg PO Q4H PRN witch [place] [Tucks] 1 pad TOP ASDIRECTED PRN Assess Lochia [WOMSER] Per Unit Routine Assess Uterine Involution [WOMSER] Per Unit Routine Breast Pump [WOMSER] Per Unit Routine Peripheral IV Discontinue [OM.PC] Routine 06/10/19 15:22 Cooling Warming Measures [RC] ASDIRECTED Ice Therapy [OM.PC] Per Unit Routine Perineal Care [OM.PC] Per Unit Routine Sitz Bath [OM.PC] Per Unit Routine 06/10/19 Dinner Regular Diet [DIET] 06/11/19 08:17 Ready for Discharge [RC] PER UNIT ROUTINE - Assessment Assessment:: 33yo s/p at 39w2d, PPD#1 - Plan Plan:: Patient desires discharge home today if cleared by electric truck operator. Reviewed discharge instructions.
[2019-06-11 16:13] VITALS: BP 107/70; PULSE 71
== END 2019-06-11 17:10 | disposition home or self-care (01) | DRG 807 ==
LOC: MW.OBCHECK 05:08 → MW.OB 05:09 → MW.OBCHECK 05:21 → MW.OB 05:21 → OBSVTOIN 15:21 → MW.OB 18:21
PROVIDERS: ADMIT Obstetrics & Gynecology; ATTEND Obstetrics & Gynecology
PROC: 10E0XZZ Delivery of Products of Conception, External Approach (ICD-10-PCS; principal; 2019-06-10)
PROC: 0KQM0ZZ Repair Perineum Muscle, Open Approach (ICD-10-PCS; 2019-06-10)
PROC: 10907ZC Drainage of Amniotic Fluid, Therapeutic from Products of Conception, Via Natural or Artificial Opening (ICD-10-PCS; 2019-06-10)
PROC: 3E033VJ Introduction of Other Hormone into Peripheral Vein, Percutaneous Approach (ICD-10-PCS; 2019-06-10)
PROC: 3E0R3BZ Introduction of Anesthetic Agent into Spinal Canal, Percutaneous Approach (ICD-10-PCS; 2019-06-10)
PROC: 4A1HXCZ Monitoring of Products of Conception, Cardiac Rate, External Approach (ICD-10-PCS; 2019-06-10)
DX: O69.81X0 Labor and delivery complicated by cord around neck, without compression, not applicable or unspecified (principal); Z37.0 Single live birth; Z3A.39 39 weeks gestation of pregnancy; O70.1 Second degree perineal laceration during delivery
CPT/HCPCS: 01967; 36415; 59025; 59409; 85014; 85018; 85027; 86592; 86593; 86850; 86900; 86901; A9270-GY; J2590; J7120